=== PATIENT | male | born 1965 | race Hispanic/Latino ===

== ENCOUNTER 2023-05-08 14:55 | Outpatient (CLI) | payer BC | END 2023-05-08 14:56 | disposition home or self-care (01) | LOC: CSHMRI 14:55 | PROVIDERS: ATTEND Family Medicine | DX: M50.10 Cervical disc disorder with radiculopathy, unspecified cervical region (principal); M50.121 Cervical disc disorder at C4-C5 level with radiculopathy; M48.02 Spinal stenosis, cervical region | CPT/HCPCS: 72141 ==

== ENCOUNTER 2023-07-08 13:15 | Outpatient (CLI) | payer BC | END 2023-07-08 13:16 | disposition home or self-care (01) | LOC: CSHCP 13:15 | PROVIDERS: ATTEND Internal Medicine | DX: J45.909 Unspecified asthma, uncomplicated (principal); G47.30 Sleep apnea, unspecified | CPT/HCPCS: 94060; 94664; 94726; 94729; 94760 ==